=== PATIENT | male | born 1940 | race Caucasian/White ===

== ENCOUNTER 2022-08-12 14:38 | Emergency (ER) | payer MEDICARE ==
[~2022-08-12] VITALS: Ht 172.7 cm; Wt 70.0 kg
[2022-08-12 17:30] VITALS: BP 180/90
== END 2022-08-12 17:30 | disposition home or self-care (01) ==
LOC: ED 14:38
DX: M25.551 Pain in right hip (principal); I10 Essential (primary) hypertension; G30.9 Alzheimer's disease, unspecified; F02.80 Dementia in other diseases classified elsewhere, unspecified severity, without behavioral disturbance, psychotic disturbance, mood disturbance, and anxiety; Z95.0 Presence of cardiac pacemaker; Z91.81 History of falling; W01.0XXA Fall on same level from slipping, tripping and stumbling without subsequent striking against object, initial encounter